=== PATIENT | female | born 1980 ===

== ENCOUNTER 2016-12-11 13:13 | Emergency (ER) | payer OTHER ==
[2016-12-11 14:06] VITALS: O2SAT 100
[2016-12-11] MEDS ORDERED: TORAdol 30 mg Injection IV ONE (14:21)
[2016-12-11] MEDS ORDERED: Sodium Chloride 0.9% 1000 ML 1,000 ML IV STA (14:21)
[2016-12-11] MEDS ORDERED: BENADRYL 50 MG/ML IV ONE (14:21)
[2016-12-11] MEDS ORDERED: Reglan 10 MG/2 ML IV ONE (14:21)
[2016-12-11] MEDS ORDERED: TORAdol 30 mg Injection ONE (14:38)
[2016-12-11] MEDS ORDERED: Sodium Chloride 0.9% 1000 ML 1,000 ML ONE (14:39)
[2016-12-11] MEDS ORDERED: BENADRYL 50 MG/ML ONE (14:39)
[2016-12-11] MEDS ORDERED: Reglan 10 MG/2 ML ONE (14:39)
[2016-12-11 15:00] VITALS: BP 114/75; PULSE 63
--- NOTE | 2016-12-11 15:02 | ERPHSYRPT ---
- History of Present Illness Time Seen by Provider: 12/11/16 14:08 Source: patient, family (fiance) Patient Subjective Stated Complaint: states hadache x 2 days. taking ibuprofen and sinus medicine,. last dose ibuprofen at 1999 last night. took 4 mucinex/ cold today. states has history of migraines. seen at chiropractor yesterday Triage Nursing Assessment: headache light sensititivy and nausea and dry heaving this am Physician History: CC: headache Hx: 36 y/o patient of ASHLY Flannery. She has hx of migraine headache, worsening in frequency and intensity. She has couple day hx of headache gradually worsened, started around right eye. Out of imitrex so could not take that. She has photophobia, dry heaves, nausea. Some tingling on her face. No fever or chills. ALL: Codiene Meds: Celexa, imitrex LMP 1 week ago and states not Timing/Duration: day(s) (2-3) Allergies/Adverse Reactions: codeine Adverse Reaction (Mild, Verified 12/11/16 14:13) Vomiting Home Medications: Citalopram Hydrobromide [Celexa] 10 mg DAILY 12/11/16 [History] Sumatriptan Succinate [Imitrex] 25 mg PO UD 12/11/16 [History] Hx Tetanus, Diphtheria Vaccination/Date Given: Yes Hx Influenza Vaccination/Date Given: No Hx Pneumococcal Vaccination/Date Given: No Immunizations Up to Date: Yes - Review of Systems Constitutional: No Fever, No Chills Eyes: Photophobia, No Vision Changes, No Double Vision Ears, Nose, & Throat: Nose Congestion Respiratory: No Cough, No Dyspnea Cardiac: No Chest Pain Abdominal/Gastrointestinal: Nausea, No Abdominal Pain, No Vomiting, No Diarrhea Skin: No Rash Neurological: Headache, No Focal Weakness, No Parasthesia All Other Systems: Reviewed and Negative - Past Medical History Pertinent Past Medical History: Yes (migraine headaches) Neurological History: Migraines ENT History: No Pertinent History Cardiac History: No Pertinent History Respiratory History: No Pertinent History Endocrine Medical History: No Pertinent History Musculoskeletal History: No Pertinent History GI Medical History: No Pertinent History History: No Pertinent History Psycho-Social History: No Pertinent History Female Reproductive Disorders: No Pertinent History - Past Surgical History Past Surgical History: No Cardiac: No Pertinent History Respiratory: No Pertinent History Gastrointestinal: No Pertinent History Genitourinary: No Pertinent History Musculoskeletal: No Pertinent History Female Surgical History: No Pertinent History - Social History Smoking Status: Never smoker Patient Lives Alone: Yes - Female History Hx Last Menstrual Period: 1 week ago - Nursing Vital Signs Nursing Vital Signs: Initial Vital Signs Temperature 97.4 F 12/11/16 13:53 Pulse Rate 66 12/11/16 13:53 Respiratory Rate 20 12/11/16 13:53 Blood Pressure 129/76 12/11/16 13:53 O2 Sat by Pulse Oximetry 100 12/11/16 13:53 Pain Scale Pain Intensity 9 - Physical Exam General Appearance: alert Eye Exam: PERRL/EOMI Ears, Nose, Throat Exam: normal ENT inspection, moist mucous membranes Neck Exam: normal inspection, non-tender, supple, No meningismus Respiratory Exam: normal breath sounds, lungs clear Cardiovascular Exam: regular rate/rhythm Gastrointestinal/Abdominal Exam: soft, No tenderness, No distention Back Exam: normal inspection, normal range of motion Extremity Exam: normal inspection, normal range of motion Mental Status Exam: alert, oriented x 3, cooperative Motor/Sensory Exam: no motor deficit, no sensory deficit, no pronator drift Skin Exam: warm, dry, No rash SpO2 Interpretation: normal SpO2: 100 Oxygen Delivery: Non-rebreather - Course Nursing assessment & vital signs reviewed: Yes Ordered Tests: Active Orders 24 hr Category Date Time Status IV Insertion STAT Care 12/11/16 14:21 Active Oxygen-ED Only NON-REBREATHER 100% Care 12/11/16 14:21 Active Medication Summary Generic Name Dose Route Start Last Admin Trade Name Freq PRN Reason Stop Dose Admin Sodium Chloride 1,000 mls @ 999 mls/hr 12/11/16 14:21 12/11/16 14:46 Sodium Chloride 0.9% 1000 Ml IV 12/11/16 15:21 999 mls/hr .Q1H1M STA Administration Discontinued Medications Generic Name Dose Route Start Last Admin Trade Name Freq PRN Reason Stop Dose Admin Diphenhydramine HCl 25 mg 12/11/16 14:21 12/11/16 14:46 Benadryl 50 Mg/Ml IV 12/11/16 14:22 25 mg STAT ONE Administration Diphenhydramine HCl Confirm 12/11/16 14:39 Benadryl 50 Mg/Ml Administered 12/11/16 14:40 Dose 50 mg .ROUTE .STK-MED ONE Sodium Chloride Confirm 12/11/16 14:39 Sodium Chloride 0.9% 1000 Ml Administered 12/11/16 14:40 Dose 1,000 mls @ ud .ROUTE .STK-MED ONE Ketorolac Tromethamine 30 mg 12/11/16 14:21 12/11/16 14:45 Toradol 30 Mg Injection IV 12/11/16 14:22 30 mg STAT ONE Administration Ketorolac Tromethamine Confirm 12/11/16 14:38 Toradol 30 Mg Injection Administered 12/11/16 14:39 Dose 30 mg .ROUTE .STK-MED ONE Metoclopramide HCl 10 mg 12/11/16 14:21 12/11/16 14:46 Reglan 10 Mg/2 Ml IV 12/11/16 14:22 10 mg STAT ONE Administration Metoclopramide HCl Confirm 12/11/16 14:39 Reglan 10 Mg/2 Ml Administered 12/11/16 14:40 Dose 10 mg .ROUTE .STK-MED ONE - Progress Progress Note: 12/11/16 15:01 She was given oxygen, reglan, benadry, toradol, IVF. She has improvement in headache. Will release with headache instr. Counseled pt/family regarding: diagnosis, need for follow-up - Departure Time of Disposition: 15:01 Departure Disposition: Home Clinical Impression: Migraine headache Qualifiers: Migraine type: without aura Status migrainosus presence: with status migrainosus Intractability: not intractable Qualified Code(s): G43.001 - Migraine without aura, not intractable, with status migrainosus Condition: Stable Critical Care Time: No Referrals: ANTONI FLANNERY [Primary Care Provider] - Instructions: Headache Additional Instructions: HEADACHE 1. After discharge from the emergency department, you should rest at home in a cool, dark, quiet place for 12-24 hours. 2. If any of the following signs or symptoms are noticed, you should be re- evaluated right away: A. Visual changes B. Stiff Neck C. Change in quality or location of pain D. Fever E. Recurrent vomiting 3. If pain medications were prescribed or given, they may cause drowsiness. Follow up next week with ASHLY Flannery. REturn for problems or concerns. No driving and stay with family today.
== END 2016-12-11 15:39 | disposition home or self-care (01) ==
LOC: ED 13:13
DX: G43.001 Migraine without aura, not intractable, with status migrainosus (principal)
CPT/HCPCS: 36000; 96360; 96374; 96375; 99284; J1200; J1885

== ENCOUNTER 2018-08-11 03:16 | Emergency (ER) | payer OTHER ==
[2018-08-11 03:36] VITALS: O2SAT 100
--- NOTE | 2018-08-11 03:53 | ERPHSYRPT ---
- History of Present Illness Time Seen by Provider: 08/11/18 03:39 Source: patient Exam Limitations: no limitations Patient Subjective Stated Complaint: Pt c/o subjective fever and mild cough x 2 days, reports being approx 6 weeks , ob [place], pt started having light pink spotting tonight when wiping. pt reports just before arrival to ed spotting became brown. denies pain. Triage Nursing Assessment: pink/warm/dry, resp easy, a&ox4, steady gait to room , no distress noted. Physician History: This is a 38-year-old white female who states that she is 6 weeks as determined by a home test. She arrives with complaint of 2 days of fever, cough, sore throat she states today she was having some vaginal spotting. Patient states she is 4 para 2, last menstrual period July 05. Past medical history migraines Past surgical history negative Timing/Duration: other (FEVER FOR 2 DAYS, VAGINAL SPOTTING THIS EVENING) Severity: mild Modifying Factors: Improves With: nothing Associated Symptoms: cough, fever, other (Sore throat), No nausea, No vomiting, No abdominal pain, No shortness of breath, No heartburn, No diaphoresis, No chills, No chest pain, No headaches, No loss of appetite, No malaise, No rash, No syncope, No seizure, No weakness Allergies/Adverse Reactions: codeine Adverse Reaction (Mild, Verified 08/11/18 03:28) Vomiting Home Medications: Citalopram Hydrobromide [Celexa] 5 mg DAILY 12/11/16 [History] Sumatriptan Succinate [Imitrex] 25 mg PO UD 12/11/16 [History] Hx Tetanus, Diphtheria Vaccination/Date Given: Yes Hx Influenza Vaccination/Date Given: Yes Hx Pneumococcal Vaccination/Date Given: No Immunizations Up to Date: Yes - Review of Systems Constitutional: Fever (Subjective fever), No Chills, No Fatigue, No Lethargy, No Malaise, No Night Sweats, No Weakness, No Weight Loss Eyes: No Symptoms Ears, Nose, & Throat: Throat Pain, No Ear Pain, No Ear Discharge, No Hearing Changes, No Tinnitus, No Nose Pain, No Nose Congestion, No Nose Discharge, No Sinus Drainage, No Epistaxis, No Mouth Pain, No Mouth Swelling, No Loose Teeth, No Throat Swelling, No Hoarse, No Painful Swallowing, No Snoring, No Stridor Respiratory: Cough, No Dyspnea Cardiac: No Chest Pain, No Edema, No Syncope Abdominal/Gastrointestinal: No Abdominal Pain, No Nausea, No Vomiting, No Diarrhea Genitourinary Symptoms: (patient states she is 6 weeks ), Vaginal Bleeding (vaginal spotting), No Dysuria, No Frequency, No Hematuria, No Hesitancy, No Incontinence, No Urgency, No Urinary Retention, No Flank Pain, No Menorrhagia, No Vaginal Discharge, No Vaginal Itching Musculoskeletal: No Back Pain, No Neck Pain Skin: No Rash Neurological: No Dizziness, No Focal Weakness, No Sensory Changes Psychological: No Symptoms Endocrine: No Symptoms All Other Systems: Reviewed and Negative - Past Medical History Pertinent Past Medical History: Yes (migraine headaches) Neurological History: Migraines ENT History: No Pertinent History Cardiac History: No Pertinent History Respiratory History: No Pertinent History Endocrine Medical History: No Pertinent History Musculoskeletal History: No Pertinent History GI Medical History: No Pertinent History History: No Pertinent History Psycho-Social History: Depression Female Reproductive Disorders: No Pertinent History - Past Surgical History Past Surgical History: No Cardiac: No Pertinent History Respiratory: No Pertinent History Gastrointestinal: No Pertinent History Genitourinary: No Pertinent History Musculoskeletal: No Pertinent History Female Surgical History: No Pertinent History - Social History Smoking Status: Never smoker Exposure to second hand smoke: No Patient Lives Alone: No - Female History Hx Now: Yes Gestational Age: 6 weeks - Nursing Vital Signs Nursing Vital Signs: Initial Vital Signs Temperature 98.1 F 08/11/18 03:29 Pulse Rate 92 H 08/11/18 03:29 Respiratory Rate 14 08/11/18 03:29 Blood Pressure 128/75 08/11/18 03:29 O2 Sat by Pulse Oximetry 100 08/11/18 03:29 Pain Scale Pain Intensity 0 - Physical Exam General Appearance: no apparent distress, alert Eye Exam: PERRL/EOMI, eyes nml inspection Ears, Nose, Throat Exam: normal ENT inspection, TMs normal, pharynx normal, moist mucous membranes Neck Exam: normal inspection, non-tender, supple, full range of motion Respiratory Exam: normal breath sounds, lungs clear, No respiratory distress Cardiovascular Exam: regular rate/rhythm, normal heart sounds, normal peripheral pulses, capillary refill <2 sec Gastrointestinal/Abdomen Exam: soft, normal bowel sounds, No tenderness, No mass Pelvic Exam: normal external exam, vaginal bleeding (small amount of brownish blood), No adnexal tenderness, No adnexal mass, No cervical motion tenderness Back Exam: normal inspection, normal range of motion, No CVA tenderness, No vertebral tenderness Extremity Exam: normal inspection, normal range of motion, pelvis stable Neurologic Exam: alert, oriented x 3, cooperative, 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, normal mood/affect, nml cerebellar function, nml station & gait, sensation nml, No motor deficits Skin Exam: normal color, warm, dry, No rash Lymphatic Exam: No adenopathy SpO2 Interpretation: normal (100%) SpO2: 100 - Course Nursing assessment & vital signs reviewed: Yes - Radiology Ultrasound Exam OB Ultrasound: Other (discussed with vascular ultrasound technologist, intrauterine gestational sac 5 weeks 2 days, no pole is visualized) Ordered Tests: Active Orders 24 hr Category Date Time Status IV Insertion STAT Care 08/11/18 03:43 Active Pelvic Exam Assist STAT Care 08/11/18 03:43 Active OB <14 WKS 1ST GESTATION [US] Stat Exams 08/11/18 04:35 Taken CBC W DIFF Stat Lab 08/11/18 04:06 Completed CMP Stat Lab 08/11/18 04:06 Completed HCG QUALITATIVE,SERUM Stat Lab 08/11/18 04:06 Completed HCG, Quantitative (Inhouse) Stat Lab 08/11/18 04:06 Completed UA W/RFX UR CULTURE Stat Lab 08/11/18 05:00 Completed Wet Prep Stat Lab 08/11/18 03:45 Completed Lab/Rad Data: Laboratory Result Diagrams 08/11/18 04:06 08/11/18 04:06 Laboratory Results 08/11/18 08/11/18 08/11/18 Range/Units 05:00 04:06 04:06 WBC (4.0-10.5) K/mm3 RBC (4.1-5.4) M/mm3 Hgb (12.0-16.0) gm/dl Hct (35-47) % MCV (78-100) fl MCH (26-32) pg MCHC (32-36) g/dl RDW (11.5-14.0) % Plt Count (150-450) K/mm3 MPV (6-9.5) fl Gran % (36.0-66.0) % Eos # (Auto) (0-0.5) Absolute Lymphs (auto) (1.0-4.6) Absolute Monos (auto) (0.0-1.3) Lymphocytes % (24.0-44.0) % Monocytes % (0.0-12.0) % Eosinophils % (0.00-5.0) % Basophils % (0.0-0.4) % Absolute Granulocytes (1.4-6.9) Basophils # (0-0.4) Sodium (137-145) mmol/L Potassium (3.5-5.1) mmol/L Chloride (98-107) mmol/L Carbon Dioxide (22-30) mmol/L Anion Gap (5-15) MEQ/L BUN (7-17) mg/dL Creatinine (0.52-1.04) mg/dL Estimated GFR ML/MIN Glucose (74-106) mg/dL Calcium (8.4-10.2) mg/dL Total Bilirubin (0.2-1.3) mg/dL AST (14-36) U/L ALT (0-35) U/L Alkaline Phosphatase (38-126) U/L Serum Total Protein (6.3-8.2) g/dL Albumin (3.5-5.0) g/dL Beta HCG, Quant 9188.4 mIU/ml Serum , Qual POSITIVE (Negative) Urine Color YELLOW (YELLOW) Urine Appearance CLEAR (CLEAR) Urine pH 6.0 (5-6) Ur Specific [place] 1.016 (1.005-1.025) Urine Protein NEGATIVE (Negative) Urine Ketones MODERATE (NEGATIVE) Urine Blood NEGATIVE (0-5) Praful/ul Urine Nitrite NEGATIVE (NEGATIVE) Urine Bilirubin NEGATIVE (NEGATIVE) Urine Urobilinogen NEGATIVE (0-1) mg/dL Ur Leukocyte Esterase NEGATIVE (NEGATIVE) Urine WBC (Auto) 0-2 (0-5) /HPF Urine RBC (Auto) 3-5 (0-2) /HPF U Epithel Cells (Auto) NONE (FEW) /HPF Urine Bacteria (Auto) NONE (NEGATIVE) /HPF Urine Mucus (Auto) SLIGHT (NEGATIVE) /HPF Urine Culture Reflexed NO (NO) Urine Glucose NEGATIVE (NEGATIVE) mg/dL WBC (Wet Prep) RBC (Wet Prep) Epi Cells (Wet Prep) Bacteria (Wet Prep) Clue Cells (Wet Prep) Trichomonas (Wet Prep) Budding Yeast (Wet Prp) ABO Group Rh Factor Antibody Screen (NEGATIVE) 08/11/18 08/11/18 08/11/18 Range/Units 04:06 04:06 04:06 WBC 12.7 H (4.0-10.5) K/mm3 RBC 3.97 L (4.1-5.4) M/mm3 Hgb 12.0 (12.0-16.0) gm/dl Hct 35.6 (35-47) % MCV 89.7 (78-100) fl MCH 30.2 (26-32) pg MCHC 33.7 (32-36) g/dl RDW 13.5 (11.5-14.0) % Plt Count 313 (150-450) K/mm3 MPV 9.4 (6-9.5) fl Gran % 80.7 H (36.0-66.0) % Eos # (Auto) 0.08 (0-0.5) Absolute Lymphs (auto) 1.22 (1.0-4.6) Absolute Monos (auto) 1.15 (0.0-1.3) Lymphocytes % 9.6 L (24.0-44.0) % Monocytes % 9.0 (0.0-12.0) % Eosinophils % 0.6 (0.00-5.0) % Basophils % 0.1 (0.0-0.4) % Absolute Granulocytes 10.26 H (1.4-6.9) Basophils # 0.01 (0-0.4) Sodium 137 (137-145) mmol/L Potassium 3.3 L (3.5-5.1) mmol/L Chloride 106 (98-107) mmol/L Carbon Dioxide 24 (22-30) mmol/L Anion Gap 9.7 (5-15) MEQ/L BUN 9 (7-17) mg/dL Creatinine 0.54 (0.52-1.04) mg/dL Estimated GFR > 60.0 ML/MIN Glucose 83 (74-106) mg/dL Calcium 9.0 (8.4-10.2) mg/dL Total Bilirubin 0.40 (0.2-1.3) mg/dL AST 27 (14-36) U/L ALT 24 (0-35) U/L Alkaline Phosphatase 58 (38-126) U/L Serum Total Protein 6.7 (6.3-8.2) g/dL Albumin 3.7 (3.5-5.0) g/dL Beta HCG, Quant mIU/ml Serum , Qual (Negative) Urine Color (YELLOW) Urine Appearance (CLEAR) Urine pH (5-6) Ur Specific [place] (1.005-1.025) Urine Protein (Negative) Urine Ketones (NEGATIVE) Urine Blood (0-5) Praful/ul Urine Nitrite (NEGATIVE) Urine Bilirubin (NEGATIVE) Urine Urobilinogen (0-1) mg/dL Ur Leukocyte Esterase (NEGATIVE) Urine WBC (Auto) (0-5) /HPF Urine RBC (Auto) (0-2) /HPF U Epithel Cells (Auto) (FEW) /HPF Urine Bacteria (Auto) (NEGATIVE) /HPF Urine Mucus (Auto) (NEGATIVE) /HPF Urine Culture Reflexed (NO) Urine Glucose (NEGATIVE) mg/dL WBC (Wet Prep) RBC (Wet Prep) Epi Cells (Wet Prep) Bacteria (Wet Prep) Clue Cells (Wet Prep) Trichomonas (Wet Prep) Budding Yeast (Wet Prp) ABO Group A Rh Factor POSITIVE Antibody Screen NEGATIVE (NEGATIVE) 08/11/18 Range/Units 03:45 WBC (4.0-10.5) K/mm3 RBC (4.1-5.4) M/mm3 Hgb (12.0-16.0) gm/dl Hct (35-47) % MCV (78-100) fl MCH (26-32) pg MCHC (32-36) g/dl RDW (11.5-14.0) % Plt Count (150-450) K/mm3 MPV (6-9.5) fl Gran % (36.0-66.0) % Eos # (Auto) (0-0.5) Absolute Lymphs (auto) (1.0-4.6) Absolute Monos (auto) (0.0-1.3) Lymphocytes % (24.0-44.0) % Monocytes % (0.0-12.0) % Eosinophils % (0.00-5.0) % Basophils % (0.0-0.4) % Absolute Granulocytes (1.4-6.9) Basophils # (0-0.4) Sodium (137-145) mmol/L Potassium (3.5-5.1) mmol/L Chloride (98-107) mmol/L Carbon Dioxide (22-30) mmol/L Anion Gap (5-15) MEQ/L BUN (7-17) mg/dL Creatinine (0.52-1.04) mg/dL Estimated GFR ML/MIN Glucose (74-106) mg/dL Calcium (8.4-10.2) mg/dL Total Bilirubin (0.2-1.3) mg/dL AST (14-36) U/L ALT (0-35) U/L Alkaline Phosphatase (38-126) U/L Serum Total Protein (6.3-8.2) g/dL Albumin (3.5-5.0) g/dL Beta HCG, Quant mIU/ml Serum , Qual (Negative) Urine Color (YELLOW) Urine Appearance (CLEAR) Urine pH (5-6) Ur Specific [place] (1.005-1.025) Urine Protein (Negative) Urine Ketones (NEGATIVE) Urine Blood (0-5) Praful/ul Urine Nitrite (NEGATIVE) Urine Bilirubin (NEGATIVE) Urine Urobilinogen (0-1) mg/dL Ur Leukocyte Esterase (NEGATIVE) Urine WBC (Auto) (0-5) /HPF Urine RBC (Auto) (0-2) /HPF U Epithel Cells (Auto) (FEW) /HPF Urine Bacteria (Auto) (NEGATIVE) /HPF Urine Mucus (Auto) (NEGATIVE) /HPF Urine Culture Reflexed (NO) Urine Glucose (NEGATIVE) mg/dL WBC (Wet Prep) Rare RBC (Wet Prep) None Seen Epi Cells (Wet Prep) Rare Bacteria (Wet Prep) Rare Clue Cells (Wet Prep) None Seen Trichomonas (Wet Prep) None Seen Budding Yeast (Wet Prp) None Seen ABO Group Rh Factor Antibody Screen (NEGATIVE) - Progress Progress: improved Progress Note: 08/11/18 06:09 08/11/18 06:10 Patient's OB ultrasound intrauterine gestational sac 5 weeks 2 days, no pole is seen. Patient withs small amount of bleeding which brown blood on vaginal exam. Patient in no acute distress. We'll discharge. Fluids, strep are negative. - Departure Departure Disposition: Home Clinical Impression: Intrauterine , Vaginal bleeding, fever at home Condition: Fair Critical Care Time: No Referrals: ANTONI DYER [Primary Care Provider] - Additional Instructions: Return home. Plenty of fluids. Nothing in your vagina. Tylenol every 4 hours as needed for temperature greater than 100.5. Follow-up with your FLOOR COVERER APPRENTICE physician. Return for acute distress or for severe symptoms.
[2018-08-11 04:18] LABS: BASOPHIL % 0.1 % (0.0-0.4); Basophil (Absolute #) 0.01 (0-0.4); Eosinophil % 0.6 % (0.00-5.0); Eosinophil (Absolute #) 0.08 (0-0.5); Granulocyte Absolute (ANC) 10.26 (1.4-6.9); Granulocytes % 80.7 % (36.0-66.0); Hematocrit 35.6 % (35-47); Lymphocyte (Absolute #) 1.22 (1.0-4.6); Lymphocytes % 9.6 % (24.0-44.0); Mean Cell Volume 89.7 fl (78-100); Mean Corpuscular Hemoglobin 30.2 pg (26-32); Mean Corpuscular Hgb Concent. 33.7 g/dl (32-36); Mean Platelet Volume 9.4 fl (6-9.5); Monocyte (Absolute #) 1.15 (0.0-1.3); Platelet Count 313 K/mm3 (150-450); Red Blood Count 3.97 M/mm3 (4.1-5.4); Red Cell Distribution Width 13.5 % (11.5-14.0); White Blood Count 12.7 K/mm3 (4.0-10.5)
[2018-08-11 04:26] LABS: ALBUMIN 3.7 g/dL (3.5-5.0); ALKALINE PHOSPHATASE 58 U/L (38-126); ANION GAP 9.7 MEQ/L (5-15); BLOOD UREA NITROGEN 9 mg/dL (7-17); CHLORIDE 106 mmol/L (98-107); Carbon Dioxide 24 mmol/L (22-30); Creatinine 1 0.54 mg/dL (0.52-1.04); Glucose 83 mg/dL (74-106); Potassium 3.3 mmol/L (3.5-5.1); SGOT/AST 27 U/L (14-36); SGPT/ALT 24 U/L (0-35); SODIUM 137 mmol/L (137-145); Total Protein 6.7 g/dL (6.3-8.2)
[2018-08-11 05:14] LABS: ABO TYPING A; Antibody Screen NEGATIVE (NEGATIVE); RH TYPING POSITIVE
[2018-08-11 05:17] LABS: Appearance CLEAR (CLEAR); Bilirubin NEGATIVE (NEGATIVE); Blood NEGATIVE Ery/ul (0-5); Glucose NEGATIVE (NEGATIVE); Ketones MODERATE (NEGATIVE); Leukocyte Esterase NEGATIVE (NEGATIVE); Mucus SLIGHT /HPF (NEGATIVE); Nitrite NEGATIVE (NEGATIVE); Protein,Urine Dip NEGATIVE (Negative); Specific Gravity 1.016 (1.005-1.025); Urobilinogen NEGATIVE mg/dL (0-1); WBC 0-2 /HPF (0-5)
[2018-08-11 05:46] LABS: Bacteria Rare; Clue Cells None Seen; Red Blood Cells None Seen; Trichomonas None Seen; White Blood Cells Rare; Yeast None Seen
[2018-08-11 06:15] VITALS: BP 123/68; PULSE 86
[2018-08-11 06:45] LABS: CHLAMYDIA DNA NEGATIVE; Group A Strep NEGATIVE (NEGATIVE); INFLUENZA A NEGATIVE (NEGATIVE); INFLUENZA B NEGATIVE (NEGATIVE); N GONORRHOEAE DNA NEGATIVE; RESPIRATORY SYNCTIAL VIRUS NEGATIVE (Negative)
--- NOTE | 2018-08-11 08:39 | XRAY ---
Indication: Spotting. Positive test. Two-dimensional transabdominal early OB ultrasound performed. Comparison: None There is a single intrauterine gestational sac with mean diameter 1.14 cm corresponding to 5 weeks 2 days. No pole or heart tones. No abnormal subchorionic fluid. Remaining uterus heterogeneous with at least 2 subserosal fibroids, largest 2.5 x 1.6 x 2.7 cm towards the right. Tiny 8 mm cervical nabothian cyst. Left and right ovaries unremarkable. No suspicious adnexal mass or free fluid. Impression: 1. Single intrauterine gestational sac measuring 5 weeks 2 days. No pole/heart tones at this time and no acute findings. Correlate with serial beta hCG and follow-up sonogram regarding viability. 2. Heterogeneous myometrium with at least 2 fibroids. Tiny cervical nabothian cyst. Comment: Preliminary report was given.
== END 2018-08-11 06:23 | disposition home or self-care (01) ==
LOC: ED 03:16
DX: O20.9 Hemorrhage in early pregnancy, unspecified (principal); Z3A.01 Less than 8 weeks gestation of pregnancy; R50.9 Fever, unspecified
CPT/HCPCS: 36000; 36415; 76801; 80053; 81001; 81025; 84702; 85025; 86850; 86900; 86901; 87210; 87490; 87590; 87631; 87651; 99284